=== PATIENT | male | born 1995 | race African-American/Black ===

== ENCOUNTER 2019-06-11 20:40 | Observation (INO) ==
[2019-06-12 00:37] LABS: Basophils % 0.4 % (0.0-0.8); Eosinophils # 0.1 10*3/uL (0.0-0.87); Eosinophils % 1.6 % (0.00-10.9); Hematocrit 41.7 VOL% (42.0-52.0); Hemoglobin 13.7 GM/DL (14.0-18.0); Immature Granulocytes % 0.4 %; Immature Granulocytes Absolute 0.03 #; Lymphocytes # 1.8 10*3/uL (1.4-4.0); Lymphocytes % 23.4 % (21.2-54.2); Mean Corpuscular HGB Conc 32.9 GM/DL (32-36); Mean Corpuscular Volume 92.1 FL (87-102); Mean Platelet Volume 8.6 FL (9.6-12.0); Monocytes % 8.6 % (1.7-12.7); Neutrophils % 65.6 % (38.7-73.9); Platelet Count 449 T/CUMM (130-400); Red Blood Count 4.53 MC/CUMM (3.8-5.5); Red Cell Distribution Width 12.5 % (9.3-17.3); White Blood Count 7.5 T/CUMM (4-12)
[2019-06-12 00:59] LABS: Alanine Aminotransferase 69 U/L (16-61); Albumin 1.2 G/DL (3.4-5.0); Alkaline Phosphatase 71 U/L (45-117); Amylase 128 U/L (25-115); Aspartate Amino Transferase 50 U/L (0-37); Bilirubin,Total < 0.39 MG/DL (0.2-1.0); Blood Urea Nitrogen 14 MG/DL (7-18); Calcium 8.1 MG/DL (8.5-10.1); Glucose 71 MG/DL (74-106); Osmolality,Calculated 275.5 MOS/KG (273-304); Total Protein 5.5 G/DL (6.4-8.3)
[2019-06-12 01:11] LABS: Free T4 (Free Thyroxine) 0.88 NG/DL (0.76-1.46); Thyroid Stimulating Hormone 5.07 uIU/ml (0.358-3.74)
[2019-06-12] MEDS ORDERED: DEXTROSE 50% 25 GM/50 ML VIAL IV STA (01:35)
[2019-06-12] MEDS ORDERED: DEXTROSE 50% 25 GM/50 ML SYRINGE IV ONE (01:42)
[2019-06-12 02:25] LABS: Apearance,Urine CLEAR (Clear); Bilirubin,Urine Negative (Negative); Blood, Urine Moderate mg/dL (Negative); Glucose,Urine (UA) Negative (Negative); Hyaline Casts,Urine 40 /LPF (0-3); Ketones,Urine Negative (Negative); Mucus,Urine Occasional /LPF (Occasional); Nitrite,Urine Negative (Negative); Protein,Urine >=500 MG/DL; RBC,Urine 2 /HPF (0-4); Squamous Epithelial Cell,Urine Occasional /HPF (0-10); Urine Color Yellow (Yellow); Urine Specific Gravity 1.031 (1.001-1.035); Urine Urobilinogen < 2.0 EU/DL (0.2-1.0); WBC,Urine 6 /HPF (0-6)
[2019-06-12 02:42] LABS: INR 0.9; Partial Thromboplastin Time 33.2 SECS (20.8-36.0)
[2019-06-12 02:52] LABS: Alanine Aminotransferase 71 U/L (16-61); Albumin 1.2 G/DL (3.4-5.0); Alkaline Phosphatase 95 U/L (45-117); Aspartate Amino Transferase 50 U/L (0-37); Bilirubin,Direct < 0.100 MG/DL (0.0-0.20); Bilirubin,Indirect 0.3 MG/DL (0.0-1.0); Bilirubin,Total < 0.39 MG/DL (0.2-1.0); Total Protein 5.4 G/DL (6.4-8.3)
[2019-06-12] MEDS ORDERED: MORPHINE 4 MG/1 ML VIAL IV PRN (02:56)
[2019-06-12] MEDS ORDERED: ACETAMINOPHEN 325 MG TABLET PO PRN (02:56)
[2019-06-12] MEDS ORDERED: NICOTINE 21 MG/24 HR PATCH TRANSDERM PRN (02:56)
[2019-06-12] MEDS ORDERED: ONDANSETRON 4 MG/2 ML VIAL IV PRN (02:56)
[2019-06-12] MEDS: SODIUM CHLORIDE 0.9% 1,000 ML IV SCH ×2 (03:25→07:39)
[2019-06-12 03:36] LABS: Troponin I < 0.015 NG/ML (0.00-0.045)
[2019-06-12 03:39] LABS: Barbiturates Screen,Urine Negative (Negative); Benzodiazepines Screen,Urine Negative (Negative); Cannabinoid Screen,Urine Positive (Negative); Opiate Screen,Urine Negative (Negative); Phencyclidine Screen,Urine Negative (Negative)
[2019-06-12 03:43] LABS: Hepatitis B Core IgM Quant 0.22 Index; Hepatitis B Surface Ag Quant < 0.10 Index; Hepatitis B Surface Ag Result Negative (Negative); Hepatitis C Virus Ab Quant 0.06 Index; Hepatitis C Virus Ab Result Negative (Negative)
[2019-06-12] MEDS ORDERED: INFLUENZA VIRUS VACCINE 0.5 ML SYRINGE IM ONE (05:12)
[2019-06-12 14:36] LABS: Protein/Creatinine Ratio,Urine 8.8 RATIO
[2019-06-12 15:58] LABS: Hepatitis B Core IgM Quant 0.22 Index; Hepatitis B Surface Ab Result Positive; Hepatitis B Surface Ag Quant < 0.10 Index; Hepatitis B Surface Ag Result Negative (Negative); Hepatitis C Virus Ab Quant 0.08 Index; Hepatitis C Virus Ab Result Negative (Negative)
[2019-06-12 17:57] LABS: Microalbum/Creat Ratio Random 7123.9 RATIO (0-30)
[2019-06-13] MEDS ORDERED: DIAZEPAM 5 MG TABLET PO ONE (08:34)
[2019-06-13 09:28] LABS: Rapid Plasma Reagin Confirm REACTIVE (Nonreactive)
[2019-06-14] MEDS ORDERED: BICILLIN LA 2,400,000 UNIT/4 ML SYRINGE IM ONE (07:27)
[2019-06-14 17:37] VITALS: BP 132/85
== END 2019-06-14 17:28 | disposition home or self-care (01) ==
LOC: N.EDINP 20:40 → N.ED 20:40 → N.4E 06-12 03:14
PROVIDERS: ADMIT Internal Medicine; ATTEND Internal Medicine